=== PATIENT | male | born 1975 | race American Indian/Alaskan Native ===

== ENCOUNTER 2016-12-12 19:44 | Inpatient (IN) | payer OTHER ==
[2016-12-12] MEDS ORDERED: ZOFRAN IV ONE (20:38)
[2016-12-12] MEDS ORDERED: MORPHINE IV ONE ×2 (20:38→21:57)
[2016-12-12] MEDS ORDERED: NACL 0.9% 1000 ML 1,000 ML IV ONE (20:41)
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
[2016-12-12] MEDS ORDERED: ATROVENT IH ONE (20:51)
[2016-12-12] MEDS ORDERED: PROVENTIL IH ONE (20:51)
[2016-12-12 21:09] LABS: Basophils % (Auto) 0.2 % (0.0-1.8); Eosinophils % (Auto) 0.9 % (0.0-4.3); Hematocrit 41.5 % (35.5-45.6); Hemoglobin 14.1 gm/dl (11.8-15.2); Mean Corpuscular HGB Conc 34 % (32-34); Mean Corpuscular Hemoglobin 31 pg (28-32); Mean Corpuscular Volume 92 fl (84-94); Platelet Count 177 K/mm3 (140-440); Red Blood Count 4.54 M/mm3 (3.65-5.03); White Blood Count 10.1 K/mm3 (4.5-11.0)
[2016-12-12 21:26] LABS: Alanine Aminotransferase 31 units/L (7-56); Albumin 4.4 g/dL (3.9-5); Albumin/Globulin Ratio 1.2 %; Alkaline Phosphatase 44 units/L (35-129); Anion Gap 24 mmol/L; BUN/Creatinine Ratio 18.57; Blood Urea Nitrogen 13 mg/dL (9-20); Calcium 9.8 mg/dL (8.4-10.2); Carbon Dioxide 24 mmol/L (22-30); Chloride 93.5 mmol/L (98-107); Glucose 101 mg/dL (75-100); Potassium 4.1 mmol/L (3.6-5.0); Sodium 137 mmol/L (137-145); Total Protein 8.2 g/dL (6.3-8.2)
[2016-12-12 21:31] LABS: INR 1.08 (0.87-1.13)
[2016-12-12 21:32] LABS: Partial Thromboplastin Time 35.4 Sec. (24.2-36.6)
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
[2016-12-13] MEDS ORDERED: ZOFRAN IV PRN (00:20)
[2016-12-13] MEDS ORDERED: NACL 0.9% 1000 ML 1,000 ML IV ONE (00:23)
[2016-12-13] MEDS ORDERED: NACL 0.9% 1000 ML 1,000 ML ONE (00:48)
[2016-12-13] MEDS: SUBLIMAZE IV PRN ×2 (02:50→10:50)
[2016-12-13] MEDS: NACL 0.9% 1000 ML 1,000 ML IV SCH ×2 (02:51→17:15)
[2016-12-13 05:59] LABS: Basophils % (Auto) 0.4 % (0.0-1.8); Eosinophils % (Auto) 1.6 % (0.0-4.3); Hematocrit 35.8 % (35.5-45.6); Hemoglobin 12.2 gm/dl (11.8-15.2); Mean Corpuscular HGB Conc 34 % (32-34); Mean Corpuscular Hemoglobin 31 pg (28-32); Mean Corpuscular Volume 91 fl (84-94); Platelet Count 144 K/mm3 (140-440); Red Blood Count 3.94 M/mm3 (3.65-5.03); Red Cell Distribution Width 13.9 % (13.2-15.2); White Blood Count 10.1 K/mm3 (4.5-11.0)
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
[2016-12-13] MEDS: MORPHINE IV PRN ×3 (07:53→22:30)
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
[2016-12-13 10:17] LABS: Basophils % (Auto) 0.2 % (0.0-1.8); Eosinophils % (Auto) 1.6 % (0.0-4.3); Hematocrit 35.3 % (35.5-45.6); Hemoglobin 11.9 gm/dl (11.8-15.2); Mean Corpuscular HGB Conc 34 % (32-34); Mean Corpuscular Hemoglobin 31 pg (28-32); Mean Corpuscular Volume 93 fl (84-94); Platelet Count 146 K/mm3 (140-440); Red Blood Count 3.82 M/mm3 (3.65-5.03); White Blood Count 10.3 K/mm3 (4.5-11.0)
[2016-12-13] MEDS ORDERED: HYDROCORTISONE CR TP PRN (12:36)
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
[2016-12-13] MEDS: NORCO 5/325 PO PRN (17:15)
[2016-12-13] MEDS ORDERED: ATROVENT IH SCH (22:32)
[2016-12-13] MEDS ORDERED: PROVENTIL IH PRN (22:42)
[2016-12-13] MEDS: DUONEB 0.5 MG-3 MG/3 ML SOLN IH SCH (22:49)
[2016-12-14] MEDS: BANOPHEN ANTI-ITCH TP PRN ×2 (01:01→13:30)
[2016-12-14] MEDS: NACL 0.9% 1000 ML 1,000 ML IV SCH (03:25)
[2016-12-14 05:56] LABS: Basophils % (Auto) 0.2 % (0.0-1.8); Hematocrit 35.3 % (35.5-45.6); Hemoglobin 11.9 gm/dl (11.8-15.2); Mean Corpuscular HGB Conc 34 % (32-34); Mean Corpuscular Hemoglobin 31 pg (28-32); Mean Corpuscular Volume 92 fl (84-94); Platelet Count 142 K/mm3 (140-440); Red Blood Count 3.83 M/mm3 (3.65-5.03); Red Cell Distribution Width 13.6 % (13.2-15.2); White Blood Count 11.9 K/mm3 (4.5-11.0)
[2016-12-14] MEDS: MORPHINE IV PRN (07:39)
[2016-12-14 08:53] VITALS: BP 144/79
[2016-12-14] MEDS: DUONEB 0.5 MG-3 MG/3 ML SOLN IH SCH ×3 (09:21→20:01)
[2016-12-14] MEDS: NORCO 5/325 PO PRN ×2 (12:23→16:02)
--- NOTE | 2016-12-14 12:46 | Progress Note ---
Assessment and Plan Pt feeling well. camille diet. ambulating. c/o L rib cage pain otherwise no compl VSS surgically stable will d/c today rto next Tues Selected Entries 12/14/16 12/14/16 08:00 09:26 Temperature 99.1 F Pulse Rate [ 76 Anterior Bilateral Throughout] Respiratory 18 Rate Blood Pressure 144/79 [Right] Laboratory Tests 12/13/16 12/14/16 09:51 05:33 WBC 10.3 11.9 H Hgb 11.9 11.9 Hct 35.3 L 35.3 L Objective Vital Signs - 12hr 12/14/16 12/14/16 12/14/16 08:00 09:16 09:26 Temperature 99.1 F Pulse Rate 75 Pulse Rate [ 76 76 Anterior Bilateral Throughout] Respiratory 18 Rate Respiratory 16 16 Rate [Anterior Bilateral Throughout] Blood Pressure 144/79 [Right] O2 Sat by Pulse 96 Oximetry - Labs 12/14/16 05:33 12/12/16 20:42
--- NOTE | 2016-12-14 12:48 | Discharge Summary ---
Providers - Providers Date of Admission: 12/13/16 00:16 Attending physician: LISET LUCERO Primary care physician: ARABIC PROFESSOR Hospitalization Condition: Good Disposition: DC-01 TO HOME OR SELFCARE Core Measure Documentation - Palliative Care Palliative Care/ Comfort Measures: Not Applicable - Core Measures Any of the following diagnoses?: none Exam - Constitutional Vitals: Temp Pulse Resp BP Pulse Ox 99.1 F 76 16 144/79 96 12/14/16 08:00 12/14/16 09:26 12/14/16 09:26 12/14/16 08:00 12/14/16 08:00 Plan Activity: other (no heavy lifting. rto next ) Weight Bearing Status: Partial Weight Bearing Diet: regular Follow up with: LISET LUCERO MD [Staff Physician] - 12/19/16 Prescriptions: Ibuprofen [Motrin 800 MG tab] 800 mg PO Q8HR PRN #20 tablet PRN Reason: Pain
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
== END 2016-12-14 14:20 | disposition home or self-care (01) | DRG 185 ==
LOC: ED 19:44 → CC1 12-13 00:16 → 2B-SURG 12-13 15:00
PROVIDERS: ADMIT Surgery; ATTEND Surgery
DX: S22.42XA Multiple fractures of ribs, left side, initial encounter for closed fracture (principal); F17.210 Nicotine dependence, cigarettes, uncomplicated; J45.909 Unspecified asthma, uncomplicated; X94.0XXA Assault by shotgun, initial encounter; X99.0XXA Assault by sharp glass, initial encounter; Y93.01 Activity, walking, marching and hiking; S29.8XXA Other specified injuries of thorax, initial encounter; S39.81XA Other specified injuries of abdomen, initial encounter; Y99.8 Other external cause status; Z72.89 Other problems related to lifestyle; Y92.098 Other place in other non-institutional residence as the place of occurrence of the external cause; Y08.02XA Assault by strike by baseball bat, initial encounter; Z82.49 Family history of ischemic heart disease and other diseases of the circulatory system
CPT/HCPCS: 36415; 70450; 70486; 71010; 71260; 72125; 74177; 80053; 85025; 85610; 85730; 86850; 86900; 86901; 94640; 96361; 96374; 96375; A6250; J2270; J2405; J3010; J7030; Q9967

== ENCOUNTER 2017-07-24 10:45 | Emergency (ER) | payer SELFPAY ==
[2017-07-24 12:03] VITALS: BP 166/99
[2017-07-24] MEDS: PROVENTIL IH ONE ×2 (12:04→12:30)
[2017-07-24] MEDS ORDERED: TYLENOL PO ONE (12:04)
[2017-07-24] MEDS ORDERED: TYLENOL ONE (12:05)
[2017-07-24 13:02] LABS: Hematocrit 40.8 % (35.5-45.6); Hemoglobin 13.7 gm/dl (11.8-15.2); Mean Corpuscular HGB Conc 34 % (32-34); Mean Corpuscular Hemoglobin 31 pg (28-32); Mean Corpuscular Volume 91 fl (84-94); Platelet Count 168 K/mm3 (140-440); Red Blood Count 4.47 M/mm3 (3.65-5.03); Red Cell Distribution Width 13.8 % (13.2-15.2)
[2017-07-24 13:20] LABS: BUN/Creatinine Ratio 11; Blood Urea Nitrogen 8 mg/dL (9-20); Calcium 9.2 mg/dL (8.4-10.2); Hemolysis Index 2
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
[2017-07-24] MEDS ORDERED: ZOFRAN IV ONE (14:02)
[2017-07-24] MEDS ORDERED: MORPHINE IV ONE (14:02)
[2017-07-24] MEDS ORDERED: ASPIRIN PO ONE (14:03)
[2017-07-24 14:05] LABS: Creatine Kinase MB 1.1 ng/mL (0.0-4.0)
--- NOTE | 2017-07-24 15:10 | XRay Report ---
ROUTINE CHEST, TWO VIEWS: HISTORY: Short of breath. The trachea, heart, mediastinal contour, lung puckett and bony thorax are unremarkable. No significant change since 12/13/16. IMPRESSION: Unremarkable chest x-ray.
--- NOTE | 2017-07-24 17:23 | History and Physical Report ---
History of Present Illness Chief complaint: My chest hurts History of present illness: 42 YO Male with Asthma, Nicotine Dependence presents to ED for evaluation of chest pain. The patient states the past 2 days he's had some substernal chest pain that was sharp in nature. Patient is to shortness of breath, diaphoresis and nausea without vomiting associated with this chest pain. The patient does admit to a productive cough, sore throat. Pt seen and evaluated in ED and found to have atypical chest pain secondary to GERD. Pt treated with ppi therapy. Pt medically optimized and back to usual state of health. Pt discharged home and instructed to f/u pcp 1wk, cardiology prn, and GI prn. Past History Past Medical History: other (asthma) Past Surgical History: No surgical history Social history: , smoking Family history: hypertension Medications and Allergies Allergies Allergy/AdvReac Type Severity Reaction Status Date / Time No Known Allergies Allergy Unverified 12/12/16 20:02 Home Medications Medication Instructions Recorded Confirmed Last Taken Type Pantoprazole [Protonix TAB] 20 mg PO QDAY #15 tablet. 07/24/17 Unknown Rx Review of Systems Constitutional: no weight loss, no weight gain, no fever, no chills Ears, nose, mouth and throat: nasal congestion, sore throat, no ear pain, no ear discharge, no tinnitis, no decreased hearing, no nasal discharge, no sinus pressure Cardiovascular: no chest pain Respiratory: cough with sputum, no excessive sputum, no hemoptysis Gastrointestinal: no nausea, no vomiting, no diarrhea Genitourinary Male: no hematuria, no flank pain, no discharge, no urinary frequency Rectal: no pain, no incontinence, no bleeding Musculoskeletal: no neck pain, no shooting arm pain, no arm numbness/tingling, no low back pain Integumentary: no rash, no pruritis, no redness, no sores, no wounds Neurological: no paralysis, no weakness, no parathesias, no numbness, no tingling Psychiatric: no change in sleep habits, no sleep disturbances, no insomnia, no hypersomnia, no change in appetite, no change in libido Endocrine: no cold intolerance, no heat intolerance, no polyphagia, no excessive thirst, no polydipsia, no polyuria Hematologic/Lymphatic: no easy bruising, no easy bleeding, no lymphadenopathy, no lymphedema Allergic/Immunologic: no urticaria, no allergic rhinitis, no wheezing, no persistent infections, no anaphylaxis Exam - Constitutional Vitals: Temp Pulse Resp BP Pulse Ox 100.3 F H 86 16 166/99 96 07/24/17 13:28 07/24/17 12:35 07/24/17 16:14 07/24/17 12:01 07/24/17 13:24 General appearance: Present: no acute distress, well-nourished - EENT Eyes: Present: PERRL ENT: hearing intact, clear oral mucosa - Neck Neck: Present: supple, normal ROM - Respiratory Respiratory effort: normal Respiratory: bilateral: CTA - Cardiovascular Heart Sounds: Present: S1 & S2. Absent: rub, click - Extremities Extremities: pulses symmetrical, No edema Peripheral Pulses: within normal limits - Abdominal General gastrointestinal: Present: soft, non-tender, non-distended, normal bowel sounds Male genitourinary: Present: normal - Integumentary Integumentary: Present: clear, warm, dry - Musculoskeletal Musculoskeletal: gait normal, strength equal bilaterally - Psychiatric Psychiatric: appropriate mood/affect, intact judgment & insight - Neurologic Neurologic: CNII-XII intact, moves all extremities Results - Labs CBC & Chem 7: 07/24/17 12:45 07/24/17 12:45 Labs: Abnormal lab results 07/24/17 07/24/17 Range/Units 12:45 12:45 Sodium 134 L (137-145) mmol/L Chloride 92.9 L (98-107) mmol/L BUN 8 L (9-20) mg/dL Creatinine 0.7 L (0.8-1.5) mg/dL Glucose 103 H (75-100) mg/dL Total Creatine Kinase 366 H (55-170) units/L Assessment and Plan - Patient Problems (1) Atypical chest pain Status: Acute Plan to address problem: Serial cardiac enzyme, ekg, telemetry, d dimer are unremarkable. D/C home, f/u pcp 1wk, GI and cardiology prn. Pt discharged with ppi trail for gerd. (2) GERD (gastroesophageal reflux disease) Status: Acute Plan to address problem: PPI therapy, GI f/u within 1wk
[2017-07-24] MEDS ORDERED: MOTRIN ONE (18:25)
[2017-07-24] MEDS ORDERED: MOTRIN PO ONE (18:36)
== END 2017-07-24 18:37 | disposition admitted as inpatient to this hospital (09) ==
LOC: ED 10:45
DX: R07.2 Precordial pain (principal); R06.02 Shortness of breath; R05 Cough; J45.909 Unspecified asthma, uncomplicated; F17.210 Nicotine dependence, cigarettes, uncomplicated
CPT/HCPCS: 36415; 71046; 80048; 82550; 82553; 84484; 85027; 85379; 93005; 93010; 94640; 96374; 96375; 99284; J2270; J2405